=== PATIENT | female | born 1955 | race Caucasian/White ===

== ENCOUNTER 2017-05-20 12:24 | Day surgery (SDC) | payer MEDICARE, BC ==
[2017-05-20 12:50] VITALS: BP 116/74; TEMP 98.1; O2SAT 96
[2017-05-20] MEDS ORDERED: DEXAMETHASONE SOD PHOS PF 10 MG/ML SOL IJ ONE (13:34)
[2017-05-20] MEDS ORDERED: BUPIVACAINE HCL 0.25% MPF 10 ML SOL INFIL ONE (13:34)
[2017-05-20 14:22] VITALS: PULSE 66; RESP 14
== END 2017-05-20 14:20 | disposition home or self-care (01) | DRG 552 ==
LOC: SURG 12:24
PROVIDERS: ATTEND Nurse Anesthetist, Certified Registered
DX: M54.5 Low back pain (principal); M54.16 Radiculopathy, lumbar region
CPT/HCPCS: J1100

== ENCOUNTER 2017-07-16 08:20 | Day surgery (SDC) | payer MEDICARE, BC ==
[2017-07-16] MEDS ORDERED: DIAZEPAM 5 MG TAB ONE (08:58)
[2017-07-16] MEDS ORDERED: BUPIVACAINE HCL 0.25% MPF 10 ML SOL INFIL ONE (09:24)
[2017-07-16] MEDS: DEXAMETHASONE SOD PHOS PF 10 MG/ML SOL IJ ONE ×2 (09:44→09:56)
[2017-07-16 10:08] VITALS: BP 102/62; PULSE 70; RESP 16; TEMP 97.7; O2SAT 94
== END 2017-07-16 10:30 | disposition home or self-care (01) | DRG 552 ==
LOC: SURG 08:20
PROVIDERS: ATTEND Nurse Anesthetist, Certified Registered
DX: M48.062 Spinal stenosis, lumbar region with neurogenic claudication (principal); M48.07 Spinal stenosis, lumbosacral region
CPT/HCPCS: A9270-GY; J1100

== ENCOUNTER 2018-10-12 11:24 | Outpatient (CLI) | payer BC ==
[2018-10-06 10:03] VITALS: O2SAT 97
== END 2018-10-12 11:25 | disposition home or self-care (01) | DRG 310 ==
LOC: CONVCARE 11:24
PROVIDERS: ATTEND Internal Medicine Cardiovascular Disease
DX: I48.92 Unspecified atrial flutter (principal)
CPT/HCPCS: 0296T; 93005